=== PATIENT | male | born 1960 | race Caucasian/White ===

== ENCOUNTER 2023-06-29 12:09 | Inpatient (IN) | payer MEDICAID ==
[~2023-06-29] VITALS: Ht 177.8 cm; Wt 75.0 kg
[2023-06-29] VITALS (10 sets, daily range): PULSE 74–112; RESP 16–26; O2SAT 94–98
[2023-06-29 13:02] LABS: BASOPHILS % (AUTO) 0.2 % (0-1); EOSINOPHILS # (AUTO) 1.2 X10'3 (0-0.9); EOSINOPHILS % (AUTO) 6.5 % (0-6); HEMOGLOBIN 15.2 g/dl (14.0-17.9); LYMPHOCYTES # (AUTO) 4.6 X10'3 (1.1-4.8); LYMPHOCYTES % (AUTO) 24.3 % (21-51); MEAN CORPUSCULAR HEMOGLOBIN 29.5 PG (27.0-31.0); MEAN CORPUSCULAR VOLUME 89.4 FL (78-98); MEAN PLATELET VOLUME 8.5 FL (7.4-10.4); MONOCYTES % (AUTO) 5.4 % (2-12); NEUTROPHILS % (AUTO) 63.6 % (42-75); PLATELET COUNT 326 X10'3 (140-440); RED BLOOD COUNT 5.14 X10'6 (4.70-6.10); RED CELL DISTRIBUTION WIDTH 14.2 % (11.5-14.5); WHITE BLOOD COUNT 18.8 X10'3 (4.5-11.0)
[2023-06-29 13:19] LABS: ALANINE AMINOTRANSFERASE 30 U/L (12-78); ALBUMIN 4.3 G/DL (3.4-5.0); ALBUMIN/GLOBULIN RATIO 1.1 (1.1-1.5); ALKALINE PHOSPHATASE 69 IU/L (46-116); ANION GAP 11 (8-16); ASPARTATE AMINO TRANSFERASE 19 U/L (10-37); BLOOD UREA NITROGEN 20 MG/DL (7-18); BUN/CREATININE RATIO 23.8 (10.0-20.0); CALCIUM 8.7 MG/DL (8.5-10.1); CHLORIDE 103 MMOL/L (99-107); CREATININE 0.84 MG/DL (0.60-1.10); GLUCOSE 118 MG/DL (70-104); POTASSIUM 4.1 MMOL/L (3.5-5.1); SODIUM 140 MMOL/L (135-145); TOTAL CARBON DIOXIDE 26.1 MMOL/L (24-32); TOTAL PROTEIN 8.2 G/DL (6.4-8.2); eCRCL 94 ML/MIN; eGFR > 90 ML/MIN
[2023-06-29] MEDS: ipratropium/albuterol 3ml nebule NEB ONE (13:21)
[2023-06-29 13:26] LABS: PRO BRAIN NATRIURETIC PEPTIDE 45 PG/ML (0-125)
[2023-06-29] MEDS: albuterol 2.5 MG/3 ML nebule CONTNEB PRN (13:38)
[2023-06-29] MEDS: magnesium 2GM in 50ml NS 50 ML IV ONE (14:34)
[2023-06-29] MEDS ORDERED: acetaminophen 325mg tablet PO PRN (15:15)
[2023-06-29] MEDS ORDERED: ondansetron/PF 4mg/2ml inj IV PRN (15:15)
[2023-06-29] MEDS: methylPREDNISolone sod succ 125mg/2ml vial IV ONE (16:17)
[2023-06-29] MEDS: azithromycin/NS 500mg/250ml 250 ML IV ONE (16:19)
[2023-06-29] MEDS: ipratropium/albuterol 3ml nebule NEB SCH ×2 (16:32→23:00)
[2023-06-29] MEDS: heparin, porcine 5000 units/ml vial SQ SCH (16:45)
[2023-06-29] MEDS: ipratropium/albuterol 3ml nebule NEB PRN (18:10)
[2023-06-29] MEDS ORDERED: ATOR20TA66 PO (19:19)
[2023-06-29] MEDS ORDERED: PANT40TA54 PO (19:19)
[2023-06-29] MEDS: pantoprazole 40mg Tablet.DR PO ONE (19:59)
[2023-06-29] MEDS: famotidine 20mg tablet PO SCH (20:00)
[2023-06-29] MEDS: methylPREDNISolone sod succ 125mg/2ml vial IV SCH (20:00)
[2023-06-29] MEDS: cetirizine 10mg tablet PO SCH (20:00)
[2023-06-29 20:39] LABS: D-DIMER 0.36 MG/L FEU (0-0.50)
[2023-06-29] MEDS: CefTRIAXone 2gm/D5W 50ml BAG 50 ML IV SCH (21:10)
[2023-06-29] MEDS: ringers solution, lacted 1,000 ML IV SCH (22:19)
[2023-06-30] VITALS (20 sets, daily range): BP systolic 127–151; BP diastolic 74–86; PULSE 76–103; RESP 14–20; TEMP 97.2–98.6; O2SAT 94–97
[2023-06-30] MEDS: ringers solution, lactated 500ml IV solution IV ONE (00:15)
[2023-06-30] MEDS ORDERED: PRED1TAB PO (04:38)
[2023-06-30] MEDS ORDERED: LISI20TA28 PO (04:38)
[2023-06-30] MEDS ORDERED: AZIT-164 PO (04:38)
[2023-06-30 06:26] LABS: BASOPHILS % (AUTO) 0.1 % (0-1); EOSINOPHILS # (AUTO) 0.1 X10'3 (0-0.9); EOSINOPHILS % (AUTO) 0.6 % (0-6); HEMATOCRIT 40.7 % (42.0-52.0); HEMOGLOBIN 13.3 g/dl (14.0-17.9); LYMPHOCYTES # (AUTO) 1.8 X10'3 (1.1-4.8); LYMPHOCYTES % (AUTO) 16.1 % (21-51); MEAN CORPUSCULAR HEMOGLOBIN 29.1 PG (27.0-31.0); MEAN CORPUSCULAR HGB CONC 32.7 g/dL (33.0-36.5); MEAN CORPUSCULAR VOLUME 89.1 FL (78-98); MEAN PLATELET VOLUME 8.7 FL (7.4-10.4); MONOCYTES # (AUTO) 0.3 X10'3 (0-0.9); MONOCYTES % (AUTO) 2.5 % (2-12); NEUTROPHILS # (AUTO) 9.2 X10'3 (1.8-7.7); NEUTROPHILS % (AUTO) 80.7 % (42-75); PLATELET COUNT 264 X10'3 (140-440); RED BLOOD COUNT 4.56 X10'6 (4.70-6.10); RED CELL DISTRIBUTION WIDTH 14.1 % (11.5-14.5); WHITE BLOOD COUNT 11.5 X10'3 (4.5-11.0)
[2023-06-30 06:58] LABS: ALBUMIN 3.6 G/DL (3.4-5.0); ANION GAP 11 (8-16); BLOOD UREA NITROGEN 13 MG/DL (7-18); BUN/CREATININE RATIO 14.9 (10.0-20.0); CALCIUM 8.4 MG/DL (8.5-10.1); CHLORIDE 104 MMOL/L (99-107); CREATININE 0.87 MG/DL (0.60-1.10); GLUCOSE 228 MG/DL (70-104); MAGNESIUM 2.6 MG/DL (1.5-2.4); POTASSIUM 4.4 MMOL/L (3.5-5.1); SODIUM 139 MMOL/L (135-145); TOTAL CARBON DIOXIDE 24.4 MMOL/L (24-32); eCRCL 91 ML/MIN; eGFR 89 ML/MIN
[2023-06-30] MEDS: pantoprazole 40mg Tablet.DR PO SCH (07:26)
[2023-06-30] MEDS: azithromycin/NS 500mg/250ml 250 ML IV SCH (08:52)
[2023-07-01 03:46] VITALS: PULSE 76; RESP 16; O2SAT 93
[2023-07-01 03:53] VITALS: PULSE 78; RESP 16
[2023-07-01 06:00] VITALS: BP 131/70; PULSE 68; RESP 18; TEMP 98; O2SAT 96
[2023-07-01 06:06] LABS: BASOPHILS % (AUTO) 0.2 % (0-1); EOSINOPHILS % (AUTO) 0.2 % (0-6); HEMATOCRIT 43.8 % (42.0-52.0); HEMOGLOBIN 14.3 g/dl (14.0-17.9); LYMPHOCYTES # (AUTO) 3.3 X10'3 (1.1-4.8); LYMPHOCYTES % (AUTO) 17.1 % (21-51); MEAN CORPUSCULAR HEMOGLOBIN 29.2 PG (27.0-31.0); MEAN CORPUSCULAR HGB CONC 32.7 g/dL (33.0-36.5); MEAN CORPUSCULAR VOLUME 89.3 FL (78-98); MEAN PLATELET VOLUME 8.9 FL (7.4-10.4); MONOCYTES # (AUTO) 0.6 X10'3 (0-0.9); NEUTROPHILS # (AUTO) 15.4 X10'3 (1.8-7.7); NEUTROPHILS % (AUTO) 79.5 % (42-75); PLATELET COUNT 316 X10'3 (140-440); RED CELL DISTRIBUTION WIDTH 13.9 % (11.5-14.5); WHITE BLOOD COUNT 19.4 X10'3 (4.5-11.0)
[2023-07-01 06:07] LABS: ALBUMIN 3.9 G/DL (3.4-5.0); ANION GAP 9 (8-16); BLOOD UREA NITROGEN 14 MG/DL (7-18); BUN/CREATININE RATIO 16.7 (10.0-20.0); CALCIUM 9.1 MG/DL (8.5-10.1); CHLORIDE 102 MMOL/L (99-107); CREATININE 0.84 MG/DL (0.60-1.10); GLUCOSE 226 MG/DL (70-104); MAGNESIUM 2.4 MG/DL (1.5-2.4); POTASSIUM 4.3 MMOL/L (3.5-5.1); SODIUM 137 MMOL/L (135-145); eCRCL 94 ML/MIN; eGFR > 90 ML/MIN
[2023-07-01 07:57] LABS: TOTAL CELLS COUNTED 100
[2023-07-01 07:58] LABS: PLATELET ESTIMATE NORMAL
[2023-07-01] MEDS ORDERED: DEXTROSE 15 GM of carb/4 tabs (each vial/BOTTLE has 4 tablets) PO PRN ×2 (08:00)
[2023-07-01] MEDS ORDERED: dextrose 50%-water 50ml dispensing syringe IV PRN ×2 (08:00)
[2023-07-01] MEDS ORDERED: glucagon, human recombinant 1mg kit SUBCUT PRN (08:00)
[2023-07-01] MEDS: atorvastatin 20mg tablet PO SCH (08:20)
[2023-07-01] MEDS: lisinopril 10 MG tablet PO SCH (08:21)
[2023-07-01 08:38] VITALS: PULSE 83; RESP 18; O2SAT 92
[2023-07-01 08:49] VITALS: PULSE 83; RESP 20
[2023-07-01 10:00] VITALS: BP 146/80; PULSE 84; RESP 16; TEMP 97.3; O2SAT 96
[2023-07-01] MEDS: INSULIN LISPRO 100 UNIT/ML INSULN.PEN MULTI-DOSE SQ SCH (10:08)
[2023-07-01] MEDS ORDERED: ALBU8HFA PO (12:23)
[2023-07-01] MEDS ORDERED: PRED10TA23 PO (12:23)
[2023-07-01] MEDS ORDERED: BUDE10.22 INH (12:23)
[2023-07-01] MEDS ORDERED: METF-1203 PO (12:23)
[2023-07-02] MEDS ORDERED: metFORMIN 500mg tablet PO SCH (07:30)
== END 2023-07-01 14:30 | disposition home or self-care (01) | DRG 140 ==
LOC: ER 12:10 → ED HOLD 15:15 → ORTHO 4S 06-30 03:32
PROVIDERS: ADMIT Internal Medicine; ATTEND Internal Medicine
DX: J44.1 Chronic obstructive pulmonary disease with (acute) exacerbation (principal); J96.01 Acute respiratory failure with hypoxia; E78.5 Hyperlipidemia, unspecified; E11.9 Type 2 diabetes mellitus without complications; D72.829 Elevated white blood cell count, unspecified; F17.210 Nicotine dependence, cigarettes, uncomplicated; I10 Essential (primary) hypertension; J98.01 Acute bronchospasm; J98.4 Other disorders of lung; K21.9 Gastro-esophageal reflux disease without esophagitis; K44.9 Diaphragmatic hernia without obstruction or gangrene; K29.00 Acute gastritis without bleeding; T38.0X5A Adverse effect of glucocorticoids and synthetic analogues, initial encounter; Y92.89 Other specified places as the place of occurrence of the external cause; Z87.01 Personal history of pneumonia (recurrent); Z86.73 Personal history of transient ischemic attack (TIA), and cerebral infarction without residual deficits; Z98.52 Vasectomy status; Z71.6 Tobacco abuse counseling
CPT/HCPCS: 36415; 71045; 80048; 80053; 82948; 83036; 83605; 83735; 83880; 84145; 84484; 85007; 85025; 85379; 85651; 86140; 87040; 87081; 87502; 87503; 87634; 93005; 93306; 94640; 94760; 99285; A7015; G0378; J0456; J0696; J1644; J1815; J2930; J3475; J7120